=== PATIENT | male | born 1970 | race Two or more races ===

== ENCOUNTER 2020-02-03 15:33 | Outpatient (CLI) | payer OTHER | END 2020-02-03 15:43 | disposition home or self-care (01) | LOC: RAD 15:33 | PROVIDERS: ATTEND Internal Medicine Cardiovascular Disease | DX: R07.89 Other chest pain (principal) ==

== ENCOUNTER 2020-02-05 09:09 | Outpatient (CLI) | payer OTHER | END 2020-02-05 09:22 | disposition home or self-care (01) | LOC: RAD 09:09 → MAMO-SONO 09:15 → RAD 09:22 → RX STUDY 09:45 | PROVIDERS: ATTEND Internal Medicine Cardiovascular Disease | DX: R10.84 Generalized abdominal pain (principal); K21.9 Gastro-esophageal reflux disease without esophagitis ==

== ENCOUNTER 2021-05-05 08:06 | Outpatient (CLI) | payer OTHER | END 2021-05-05 08:17 | disposition home or self-care (01) | LOC: SONOGRAMA 08:06 | PROVIDERS: ATTEND Family Medicine Geriatric Medicine | DX: K82.8 Other specified diseases of gallbladder (principal); R10.10 Upper abdominal pain, unspecified ==